=== PATIENT | female | born 1995 | race Caucasian/White ===

== ENCOUNTER → 2019-01-03 | Outpatient (CLI) | payer OTHER | END | disposition home or self-care (01) | LOC: LAB SHORT 13:04 → PLD 13:04 | DX: D06.7 Carcinoma in situ of other parts of cervix (principal) | CPT/HCPCS: 88307 ==

== ENCOUNTER → 2020-02-03 | Outpatient (CLI) | payer OTHER | END | disposition home or self-care (01) | LOC: LAB EV 18:54 → LAB SHORT 18:54 | DX: J32.9 Chronic sinusitis, unspecified (principal); Z20.828 Contact with and (suspected) exposure to other viral communicable diseases | CPT/HCPCS: U0003 ==

== ENCOUNTER → 2021-02-09 | Outpatient (CLI) | payer OTHER | END | disposition home or self-care (01) | LOC: LAB SHORT 16:34 → LAB 16:34 | DX: Z20.822 Contact with and (suspected) exposure to COVID-19 (principal) | CPT/HCPCS: U0003 ==

== ENCOUNTER 2021-03-20 23:11 | Emergency (ER) | payer OTHER ==
[~2021-03-20] VITALS: Ht 180.3 cm; Wt 88.5 kg
[2021-03-21] MEDS ORDERED: ONDA4ODT MM (00:09)
[2021-03-21] MEDS ORDERED: LOPE2C PO (00:09)
== END 2021-03-21 00:23 | disposition home or self-care (01) ==
LOC: ER 23:11
DX: K52.9 Noninfective gastroenteritis and colitis, unspecified (principal); Z88.0 Allergy status to penicillin
CPT/HCPCS: 99283; A9270

== ENCOUNTER → 2022-11-29 | Outpatient (CLI) | payer OTHER ==
[~2022-11-29] MED LIST: LOPE2C PO; ONDA4ODT MM
[2022-11-29 16:46] LABS: BASOPHILS ABSOLUTE AUTO 0.03 K/mm3 (0.00-0.23); BASOPHILS PERCENT AUTO 0 % (0-2); EOSINOPHILS ABSOLUTE AUTO 0.06 K/mm3 (0.00-0.68); EOSINOPHILS PERCENT AUTO 1 % (0-6); Hematocrit 37.2 % (33.0-51.0); Hemoglobin 12.7 g/dL (11.5-16.0); IMMATURE GRAN ABSOLUTE AUTO 0.02 K/mm3 (0.00-0.10); IMMATURE GRAN PERCENT AUTO 0 % (0-1); LYMPHOCYTES ABSOLUTE AUTO 1.75 K/mm3 (0.84-5.20); LYMPHOCYTES PERCENT AUTO 25 % (21-46); MONOCYTES ABSOLUTE AUTO 0.38 K/mm3 (0.16-1.47); MONOCYTES PERCENT AUTO 6 % (4-13); Mean Corpuscular HGB 31.1 pg (26.0-34.0); Mean Corpuscular HGB Conc 34.1 g/dL (31.5-36.5); Mean Corpuscular Volume 91 fL (80-100); Mean Platelet Volume 10.5 fL (9.1-12.4); NEUTROPHILS ABSOLUTE AUTO 4.68 K/mm3 (1.96-9.15); NEUTROPHILS PERCENT AUTO 68 % (41-73); Platelet Count 243 K/mm3 (150-400); RDW Coefficient Variation 11.9 % (11.7-14.2); RDW Standard Deviation 39.8 fL (35.1-46.3); Red Blood Cell Count 4.09 M/mm3 (3.80-5.20); White Blood Cell Count 6.92 K/mm3 (4.00-11.30)
[2022-11-29 17:06] LABS: Albumin, Blood 3.9 g/dL (3.4-5.0); Albumin/Globulin Ratio 1.1 (0.8-1.8); Bilirubin, Total 0.5 mg/dL (0.1-1.0); Bun/Creatinine Ratio 11.9 (12.0-20.0); Calcium, Blood 8.8 mg/dL (8.5-10.1); Creatinine, Blood 0.84 mg/dL (0.40-1.00); Globulin, Blood 3.5 g/dL (2.2-4.0); Potassium, Blood 3.4 mmol/L (3.5-5.5); Thyroid Stimulating Hormone 0.548 uIU/mL (0.360-4.800); Total Protein, Blood 7.4 g/dL (6.4-8.2)
== END ==
LOC: LAB SHORT 14:20 → LAB 14:20
PROVIDERS: Physician Assistant
DX: R55 Syncope and collapse (principal)
CPT/HCPCS: 80053; 84443; 85025

== ENCOUNTER → 2024-05-12 | Outpatient (CLI) | payer SELFPAY | END | disposition home or self-care (01) | LOC: LAB SHORT 17:20 → LAB 17:20 | PROVIDERS: Physician Assistant | DX: Z01.419 Encounter for gynecological examination (general) (routine) without abnormal findings (principal) | CPT/HCPCS: G0123 ==

== ENCOUNTER 2024-06-18 11:31 | Emergency (ER) | payer BC ==
[~2024-06-18] VITALS: Ht 180.3 cm; Wt 79.8 kg
[2024-06-18 11:56] VITALS: BP 151/92
[2024-06-18] MEDS ORDERED: ENILLORING VAG1 EACH VG (12:01)
== END 2024-06-18 12:37 | disposition home or self-care (01) ==
LOC: ER 11:31
DX: Z00.8 Encounter for other general examination (principal)
CPT/HCPCS: 99282

== ENCOUNTER → 2024-06-20 | Outpatient (CLI) | payer BC ==
[~2024-06-20] MED LIST changes: +ENILLORING VAG1 EACH VG
[2024-06-20 08:58] LABS: BASOPHILS ABSOLUTE AUTO 0.04 K/mm3 (0.00-0.23); BASOPHILS PERCENT AUTO 1 % (0-2); EOSINOPHILS ABSOLUTE AUTO 0.08 K/mm3 (0.00-0.68); EOSINOPHILS PERCENT AUTO 1 % (0-6); Hemoglobin 12.3 g/dL (11.5-16.0); IMMATURE GRAN ABSOLUTE AUTO 0.03 K/mm3 (0.00-0.10); IMMATURE GRAN PERCENT AUTO 0 % (0-1); LYMPHOCYTES ABSOLUTE AUTO 1.26 K/mm3 (0.84-5.20); LYMPHOCYTES PERCENT AUTO 15 % (21-46); MONOCYTES ABSOLUTE AUTO 0.53 K/mm3 (0.16-1.47); MONOCYTES PERCENT AUTO 7 % (4-13); Mean Corpuscular HGB 30.7 pg (26.0-34.0); Mean Corpuscular HGB Conc 34.2 g/dL (31.5-36.5); Mean Corpuscular Volume 90 fL (80-100); NEUTROPHILS ABSOLUTE AUTO 6.23 K/mm3 (1.96-9.15); NEUTROPHILS PERCENT AUTO 76 % (41-73); Platelet Count 270 K/mm3 (150-400); RDW Coefficient Variation 12.3 % (11.7-14.2); RDW Standard Deviation 39.8 fL (35.1-46.3); Red Blood Cell Count 4.01 M/mm3 (3.80-5.20); White Blood Cell Count 8.17 K/mm3 (4.00-11.30)
[2024-06-20 09:20] LABS: Albumin, Blood 3.9 g/dL (3.4-5.0); Albumin/Globulin Ratio 1.1 (0.8-1.8); Bilirubin, Total 0.6 mg/dL (0.1-1.0); Bun/Creatinine Ratio 22.7 (12.0-20.0); Calcium, Blood 9.1 mg/dL (8.5-10.1); Creatinine, Blood 0.88 mg/dL (0.40-1.00); Globulin, Blood 3.6 g/dL (2.2-4.0); Potassium, Blood 3.9 mmol/L (3.5-5.5); Thyroid Stimulating Hormone 0.739 uIU/mL (0.360-4.800); Total Protein, Blood 7.5 g/dL (6.4-8.2)
== END ==
LOC: LAB SHORT 08:46 → LAB 08:46
PROVIDERS: Physician Assistant
DX: R41.0 Disorientation, unspecified (principal); R82.998 Other abnormal findings in urine
CPT/HCPCS: 80053; 84443; 85025; 87086